=== PATIENT | female | born 1940 | race Caucasian/White ===

== ENCOUNTER 2018-07-02 09:50 | Inpatient (IN) ==
[2018-06-19 18:41] LABS: Appearance,Urine CLEAR; Bacteria,Urine 0 /hpf (0); Bilirubin,Urine NEG (NEG); Color,Urine STRAW; Glucose,Urine (UA) NEGATIVE (NEG); Leukocyte Esterase,Urine 25 /uL (NEG); Protein,Urine NEG (NEG); Specific Gravity,Urine 1.008 (1.000-1.035); Urine Blood NEG mg/dL (<0.03); Urine RBC 1 /hpf (0-1); Urine Squamous Epithelial Cell 1 /hpf (0-4); Urine Transitional Epi Cells < 1 /hpf (0-2); Urine WBC 2 /hpf (0-4); Urobilinogen,Urine NEG (NEG)
[2018-06-19 18:57] LABS: Basophils # (Auto) 0 K/mcL (0.0-0.3); Basophils % (Auto) 0.3 % (0.0-2.0); Eosinophils # (Auto) 0.1 K/mcL (0.0-0.7); Eosinophils % (Auto) 2.2 % (0.0-7.0); Lymphocytes # (Auto) 1.4 K/mcL (1.5-4.8); Lymphocytes % (Auto) 20.9 % (15.5-49.0); Mean Cell Volume 90.8 fL (80.0-100.0); Mean Corpuscular HGB Conc 33.3 g/dL (31.0-36.0); Monocytes # (Auto) 0.4 K/mcL (0.1-0.9); Monocytes % (Auto) 6.6 % (1.0-12.0); Platelet Count 188 K/mcL (140-440); RBC 3.77 M/mcL (4.00-5.20); Red Cell Distribution Width 14.1 % (11.5-14.5)
[2018-06-19 19:25] LABS: Blood Urea Nitrogen 15 mg/dl (8-23)
[~2018-07-02 09:50] MED LIST: 0.9 % SODIUM CHLORIDE 9 ML, KETOROLAC 30 MG, ROPIVACAINE HCL/PF 49.5 ML, EPINEPHrine 0.... IJ SCH; CELECOXIB 200 MG CAPSULE PO SCH; PREGABALIN 75 MG CAPSULE PO SCH; ceFAZolin 2 GM in DEXTROSE 5% IN WATER 50 ML IV SCH; oxyCODONE 10 MG TAB.ER.12H PO SCH
[2018-07-02] MEDS ORDERED: GENTAMICIN SULFATE 800 MG/20 ML VIAL IR ONE (14:52)
[2018-07-02] MEDS ORDERED: ROPIVACAINE HCL/PF 20 ML VIAL IJ ONE (15:10)
[2018-07-02] MEDS ORDERED: ONDANSETRON 4 MG/2 ML VIAL IV ONE (15:10)
[2018-07-02] MEDS ORDERED: TRANEXAMIC ACID 1,000 MG/10 ML VIAL IV ONE (15:10)
[2018-07-02] MEDS ORDERED: KETAMINE 10 MG/ML ML IV ONE (15:10)
[2018-07-02] MEDS ORDERED: MIDAZOLAM 2 MG/2 ML VIAL IV ONE (15:10)
[2018-07-02] MEDS ORDERED: PROPOFOL 200 MG/20 ML VIAL IV ONE (15:10)
[2018-07-02] MEDS ORDERED: DEXAMETHASONE 10 MG/ML VIAL IV ONE (15:10)
[2018-07-02] MEDS ORDERED: GLYCOPYRROLATE 0.2 MG/ML VIAL IV ONE (15:10)
[2018-07-02] MEDS ORDERED: LIDOCAINE HCL/PF 100 MG/5 ML SYRINGE IV ONE (15:10)
[2018-07-02] MEDS ORDERED: PHENYLEPHRINE 10 MG/ML VIAL IV ONE (15:10)
[2018-07-02] MEDS ORDERED: METHOCARBAMOL 1,000 MG/10 ML VIAL IV PRN (15:35)
[2018-07-02] MEDS ORDERED: fentaNYL 100 MCG/2 ML VIAL IV PRN (15:35)
[2018-07-02] MEDS ORDERED: LACTATED RINGERS 250 ML IV PRN (15:35)
[2018-07-02] MEDS ORDERED: BENZOCAINE/MENTHOL 1 LOZENGE PO PRN ×2 (15:35→16:46)
[2018-07-02] MEDS ORDERED: ONDANSETRON 4 MG/2 ML VIAL IV PRN ×2 (15:35→16:46)
[2018-07-02] MEDS ORDERED: FLUMAZENIL 0.1 MG/ML ML IV PRN (15:35)
[2018-07-02] MEDS ORDERED: IPRATROPIUM/ALBUTEROL 3 ML AMPUL.NEB NEB PRN (15:35)
[2018-07-02] MEDS ORDERED: MEPERIDINE 25 MG/ML SYRINGE IV PRN (15:35)
[2018-07-02] MEDS ORDERED: ACETAMINOPHEN 1,000 MG/100 ML BOTTLE IV ONE (15:35)
[2018-07-02] MEDS ORDERED: NALOXONE HCL 0.4 MG/ML VIAL IV PRN (15:35)
[2018-07-02] MEDS ORDERED: LACTATED RINGERS 1,000 ML IV SCH (15:45)
--- NOTE | 2018-07-02 16:45 | Brief Operative Note ---
Date of procedure: 07/02/18 Pre-op diagnosis: right knee oa Post-op diagnosis: same Procedure: right total knee arthroplasty Grafts/Implants: Yes Anesthesia: spinal Complications: none Surgeon: Ralph Duncan Project Superintendent: Elisha Raphael Estimated blood loss (cc): 150 Tourniquet Time (Minutes): 64 Specimens Removed/Pathology: none sent Condition: stable Disposition: PACU
[2018-07-02] MEDS ORDERED: ACETAMINOPHEN 325 MG TABLET PO PRN (16:46)
[2018-07-02] MEDS ORDERED: TRANEXAMIC ACID 1,000 MG/10 ML VIAL IV SCH (16:46)
[2018-07-02] MEDS ORDERED: MAGNESIUM HYDROXIDE 30 ML ORAL.SUSP PO PRN (16:46)
[2018-07-02] MEDS ORDERED: BISACODYL 10 MG SUPP.RECT PR PRN (16:46)
[2018-07-02] MEDS ORDERED: POLYETHYLENE GLYCOL 3350 17 GM PACKET PO PRN (16:46)
[2018-07-02] MEDS ORDERED: ONDANSETRON 4 MG ODT TABLET SL PRN (16:46)
[2018-07-02] MEDS ORDERED: FLEETS ADULT ENEMA PR PRN (16:46)
[2018-07-02] MEDS ORDERED: PROMETHAZINE 25 MG/ML VIAL IM PRN (16:46)
--- NOTE | 2018-07-02 16:59 | Operative Note ---
DATE OF OPERATION: 07/02/2018 PREOPERATIVE DIAGNOSIS: Degenerative joint disease, right knee. POSTOPERATIVE DIAGNOSIS: Degenerative joint disease, right knee. PROCEDURE PERFORMED: Right total knee arthroplasty. SURGEON: Mary Lou Duncan M.D. ELECTRONICS SCALE TESTER SURGEON: Elisha Raphael PA-C. ANESTHESIA: Spinal with LMA assist. ESTIMATED BLOOD LOSS: 150 mL. COMPLICATIONS: None noted. SPECIMENS REMOVED: None. DRAINS: None. TOURNIQUET TIME: 64 minutes at 300 mmHg. IMPLANTS: DePuy tibial insert fixed bearing posterior stabilized size 6, 6 mm AOX; DePuy Attune femoral posterior stabilized size 6 narrow right; DePuy Attune patella medialized dome 35 mm cemented AOX; DePuy tibial base revision knee system fixed bearing size 5 cemented; DePuy CMW2 bone cement 20 grams x4. INDICATIONS: The patient has had a long-standing history of worsening pain in the knee that has failed conservative treatment. Radiographs have confirmed advanced degenerative joint disease. After a long discussion about treatment options, the patient elected to proceed with a knee arthroplasty. The risks and benefits were discussed with the patient in detail including, but not limited to, the risks of anesthesia, problems with the heart or lungs related to anesthesia, infection, compromise or injury to the nerves and blood vessels, deep venous thrombosis, pulmonary embolism, pneumonia, continued pain after surgery, worsening pain or symptoms after surgery, swelling, loss of motion, instability, leg length discrepancy, and need for repeat surgery. DESCRIPTION OF PROCEDURE: The patient was seen in the pre-anesthesia waiting room where all questions were answered and the correct side and site were identified and marked. The patient was transferred to the operating room and administered the anesthetic and given pre-operative antibiotics. A time-out was then called. The extremity was prepped and draped, exsanguinated, and the tourniquet was inflated to 300 mmHg. A midline skin incision was then made with a standard medial parapatellar arthrotomy. Debridement of the menisci, ACL, and PCL was performed followed by balancing releases in the medial lateral plane. We then established intramedullary access to both the femur and tibia in a standard fashion. The femoral guide isauro was initially placed with the distal femoral guide, pinned into place, and the distal femoral cut was performed and checked with a flat plate. We then turned our attention to the tibia. The intramedullary guide was placed with the proximal tibial cutting block. The block was appropriately positioned off the affected side, varus and valgus was checked with the extra-medullary guide, and the block was pinned into place. The proximal tibial cut was performed and the tibia was prepared for the tibial implant with appropriate rotation. The tibia, femur, and posterior compartment were debrided of osteophytes, loose bodies, and meniscal fragments We then used the gap balancing technique to balance extension with the first two cuts and good balancing was obtained with a 10 millimeter gap block. We turned our attention back to the femur and used the referencing block and implant to size appropriately. Using the gap balancing technique for the flexion space we set our rotation of the femur off the tibial cut. Anesthesia gave the patient 1 gram of Tranexamic Acid via an intravenous route. We placed the 4 in 1 cutting block and made anterior, posterior, and chamfer cuts. Box plasty cuts were then made in a standard fashion for the posterior stabilized prosthesis. We then completed osteophyte release and posterior capsule release from the posterior compartment. Trials were placed and we chose the polyethylene insert thickness that provided the best stability in all planes. With the trials in place, we did a measured resection for a resurfacing patella. We sized the patella and placed the patella trial and performed a lateral facetectomy with the saw and rongeur. Good tracking was obtained. We removed all trials, irrigated and dried all cut surfaces. We cemented the components into place including tibia, femur and patella. We placed a trial liner and held the knee in full extension with the patella compressed while the cement cured. We then removed all excess cement and placed the final polyethylene tibiofemoral component. Irrigation with 3 liters of antibiotic saline was then performed using jet-lavage. We let the tourniquet down and coagulated bleeding vessels. We injected a 100 cubic centimeter volume including Ropivacaine 49.25 cubic centimeters at 5 milligrams per cubic centimeter, Ketorolac 30 milligrams, and Epinephrine 0.5 milligrams into 100 cubic centimeters volume of normal saline. We closed the retinaculum with #2 Stratafix and 0 Vicryl. We closed the subcutaneous tissue and skin in layers out to Dermabond on the skin. A sterile pressure dressing was applied. All needle and sponge counts were correct. The patient was transferred to the recovery room in stable condition. [email or web address] Job ID: [id number] Doc ID: [id number] Mary Lou Duncan MD
--- NOTE | 2018-07-02 17:48 | XRay Report ---
CLINICAL INFORMATION: Post-Op Total Knee COMPARISON: None FINDINGS: Total knee prostheses is anatomically aligned. No osseous abnormality. Soft tissue swelling seen as expected. IMPRESSION: Negative Interpreted and Authenticated by: Ralph Benitez 07/02/18
[2018-07-02] MEDS: 0.9 % SODIUM CHLORIDE 1,000 ML IV SCH (18:35)
[2018-07-02] MEDS: KETOROLAC 15 MG/ML VIAL IV SCH (18:35)
[2018-07-02] MEDS: HYDROcodone/APAP 10/325MG TABLET PO PRN ×2 (20:00→22:21)
[2018-07-02] MEDS: METHOCARBAMOL 750 MG TABLET PO PRN (21:39)
[2018-07-02] MEDS: DOCUSATE SODIUM 100 MG CAPSULE PO SCH (22:01)
[2018-07-02] MEDS: SENNOSIDES 1 TABLET PO SCH (22:01)
[2018-07-02] MEDS: ATORVASTATIN 20 MG TABLET PO SCH (22:01)
[2018-07-02] MEDS: ASPIRIN 325 MG ENTERIC COATED TABLET PO SCH (22:01)
[2018-07-02] MEDS: FAMOTIDINE 20 MG TABLET PO SCH (22:01)
[2018-07-02] MEDS: OXYBUTYNIN CHLORIDE 5 MG TAB.XL.24H PO SCH (22:02)
[2018-07-02] MEDS: 0.9 % SODIUM CHLORIDE 10 ML SYRINGE IV SCH (22:05)
[2018-07-02] MEDS: ceFAZolin 1 GM VIAL IV SCH (22:05)
[2018-07-03] MEDS: HYDROcodone/APAP 10/325MG TABLET PO PRN ×6 (00:27→22:15)
[2018-07-03] MEDS: KETOROLAC 15 MG/ML VIAL IV SCH ×4 (00:27→18:01)
[2018-07-03] MEDS: 0.9 % SODIUM CHLORIDE 1,000 ML IV SCH ×3 (02:42→18:36)
[2018-07-03] MEDS: METHOCARBAMOL 750 MG TABLET PO PRN (05:26)
[2018-07-03] MEDS: 0.9 % SODIUM CHLORIDE 10 ML SYRINGE IV SCH ×3 (06:03→22:16)
[2018-07-03] MEDS: ceFAZolin 1 GM VIAL IV SCH (07:13)
--- NOTE | 2018-07-03 07:18 | Orthopedic Progress Note ---
Subjective Patient information: Note initiated : 07/03/18 at 7:16 am Service Date, if different from initiated Date: [] Patient: Regina Brooks 78 y/o F admitted on 07/02/18 for Right Total Knee Arthroplasty. Chief Complaint: [POD #1 s/p right TKA Doing well, reports minimal pain. Denies CP, SOB, numbness, tingling, calf pain.] Objective Vital signs: Vital Signs Temp Pulse Resp BP BP Pulse Ox 07/03/18 04:16 97.8 F 73 20 130/65 92 07/02/18 23:07 97.5 F 69 20 148/76 97 07/02/18 20:52 62 12 155/72 96 07/02/18 19:52 58 L 154/71 97 07/02/18 19:22 65 147/73 95 07/02/18 18:52 60 135/74 95 07/02/18 18:37 59 L 132/69 95 07/02/18 18:22 57 L 125/66 95 07/02/18 18:07 60 134/62 93 07/02/18 17:52 97.3 F 65 16 118/61 88 L 07/02/18 17:45 97.5 F 65 15 105/63 95 07/02/18 17:30 97.2 F 65 14 109/52 95 07/02/18 17:15 75 16 100/54 93 07/02/18 17:10 75 14 97/46 95 07/02/18 17:05 70 11 L 105/53 95 07/02/18 17:00 98.7 F 74 16 92/46 98 07/02/18 09:50 97.9 F 59 L 16 131/71 93 Intake and Output 07/02/18 07/03/18 07/03/18 21:59 05:59 13:59 Intake Total 1620 1350 Output Total 350 150 Balance 1270 1350 -150 Intake: IV 100 1000 Sodium Chloride 0.9% 1,000 ml @ 1000 125 mls/hr IV .Q8H [facility] Rx#: [id number] Oral 120 350 IV - Manual Only 1400 Output: Void Amount 350 150 Other: Meal Dinner Percent of Meal Consumed 25% Feeding Ability Independent Urine Appearance Cloudy Urine Color Light Mehreen Urine Odor Strong Weight 211 lb 8 oz Intake & Output: Intake & Output 07/02/18 07/03/18 07/03/18 21:59 05:59 13:59 Intake Total 1620 1350 Output Total 350 150 Balance 1270 1350 -150 Weight 211 lb 8 oz Intake: IV 100 1000 Sodium Chloride 0.9% 1,000 ml @ 1000 125 mls/hr IV .Q8H [facility] Rx#: [id number] Oral 120 350 IV - Manual Only 1400 Output: Void Amount 350 150 Other: Meal Dinner Percent of Meal Consumed 25% Feeding Ability Independent Urine Appearance Cloudy Urine Color Light Mehreen Urine Odor Strong Incision: Yes healing, No draining, No red, No swollen, No inflamed, Yes clean and dry Incision clean and dry: Yes Dressing: Yes clean, Yes dry, Yes intact Weight bearing status: as tolerated Neurological exam IM: Yes alert, Yes oriented X3, Yes motor sensory intact, Yes neurovascular intact Extremities exam IM: No calf tenderness, Yes Foot pink and warm, Yes neurovascular intact - Periperhal Pulses Peripheral pulses: 2+: dorsalis pedis (L), dorsalis pedis (R), posterior tibialis (L), posterior tibialis (R) - Labs CBC & BMP: 07/03/18 04:10 06/19/18 14:43 Labs: Orthopedic Labs 07/02/18 10:11 PT 12.8 INR 1.0 07/03/18 06/19/18 04:10 14:43 Hgb 9.9 L 11.4 L Hct 30.6 L 34.2 L Assessment and Plan (1) Knee osteoarthritis POD #1 s/p right TKA: -d/c planning to SNF Sunday -pain control -ASA 325mg BID x 4 weeks -PT-WBAT -dermabond Status: Acute
[2018-07-03] MEDS: HYDROCHLOROTHIAZIDE 25 MG TABLET PO SCH (08:23)
[2018-07-03] MEDS: LISINOPRIL 20 MG TABLET PO SCH (08:24)
[2018-07-03] MEDS: RALOXIFENE HCL 60 MG TABLET PO SCH (08:24)
[2018-07-03] MEDS: DOCUSATE SODIUM 100 MG CAPSULE PO SCH ×2 (08:24→22:15)
[2018-07-03] MEDS: Anoro Ellipta 1 PUFF INH SCH (08:24)
[2018-07-03] MEDS: FAMOTIDINE 20 MG TABLET PO SCH ×2 (08:24→22:15)
[2018-07-03] MEDS: ASPIRIN 325 MG ENTERIC COATED TABLET PO SCH ×2 (08:24→22:15)
[2018-07-03] MEDS: OXYBUTYNIN CHLORIDE 5 MG TAB.XL.24H PO SCH (22:15)
[2018-07-03] MEDS: SENNOSIDES 1 TABLET PO SCH (22:15)
[2018-07-03] MEDS: ATORVASTATIN 20 MG TABLET PO SCH (22:15)
[2018-07-04] MEDS: KETOROLAC 15 MG/ML VIAL IV SCH ×3 (00:25→11:33)
[2018-07-04] MEDS: HYDROcodone/APAP 10/325MG TABLET PO PRN ×5 (02:25→22:58)
[2018-07-04] MEDS: 0.9 % SODIUM CHLORIDE 10 ML SYRINGE IV SCH ×3 (05:43→20:48)
--- NOTE | 2018-07-04 07:27 | Orthopedic Progress Note ---
Subjective Patient information: Note initiated : 07/04/18 at 7:25 am Service Date, if different from initiated Date: [] Patient: Regina Brooks 78 y/o F admitted on 07/02/18 for Right Total Knee Arthroplasty. Chief Complaint: [] Interval history: doing well. no complaints Objective Vital signs: Vital Signs Temp Pulse Resp BP Pulse Ox 07/04/18 04:00 97.6 F 59 L 18 91/54 92 07/04/18 03:00 77 07/03/18 15:54 97.7 F 58 L 16 103/60 93 07/03/18 12:33 97.5 F 60 20 113/53 92 07/03/18 08:32 97.5 F 64 20 112/61 91 07/03/18 08:23 120/50 Intake and Output 07/03/18 07/04/18 07/04/18 21:59 05:59 13:59 Intake Total 790 450 Output Total 450 200 175 Balance 340 250 -175 Intake: Oral 790 450 Output: Void Amount 450 200 175 Other: Meal Dinner Percent of Meal Consumed 90 Feeding Ability Independent Urine Appearance Clear Clear Urine Color Light Mehreen Pale Urine Odor Strong Normal Weight 232 lb Intake & Output: Intake & Output 07/03/18 07/04/18 07/04/18 21:59 05:59 13:59 Intake Total 790 450 Output Total 450 200 175 Balance 340 250 -175 Weight 232 lb Intake: Oral 790 450 Output: Void Amount 450 200 175 Other: Meal Dinner Percent of Meal Consumed 90 Feeding Ability Independent Urine Appearance Clear Clear Urine Color Light Mehreen Pale Urine Odor Strong Normal Incision: Yes healing Incision clean and dry: Yes Dressing: Yes clean, Yes dry, Yes intact Weight bearing status: full Neurological exam IM: Yes alert, Yes oriented X3, Yes motor sensory intact, Yes neurovascular intact Extremities exam IM: No calf tenderness, Yes Foot pink and warm, Yes neurovascular intact - Labs CBC & BMP: 07/04/18 04:15 06/19/18 14:43 Labs: Orthopedic Labs 07/02/18 10:11 PT 12.8 INR 1.0 07/04/18 07/03/18 06/19/18 04:15 04:10 14:43 Hgb 8.7 L 9.9 L 11.4 L Hct 26.7 L 30.6 L 34.2 L Assessment and Plan (1) Knee osteoarthritis pod 2 s/p tka pain control dvt prophylaxis PT d/c planning - SNF tomorrow Status: Acute
--- NOTE | 2018-07-04 07:30 | Discharge Summary ---
Ortho Discharge - TKA - Patient Instructions Diet: Regular Diet Activity: ambulate with assistive device, weight bearing as tolerated Total Knee Protocol: For Total Knee: Start ROM CONSUELO with stationary bike or rocking chair. Work on gaining full extension of knee. Posterior dislocation precautions provided. Hip abductor strengthening and gait training instructions provided. Apply Cryocuff as instructed. Dressing Care: May shower in 2 days - Problem Maintenance (1) Knee osteoarthritis Status: Acute - Follow Up Plan Follow Up Appointments: Elisha Raphael PA-C [Physician Studio Technician Video Operator] - 07/17/18 8:40 am Disposition: Home, Self-Care Prognosis: Good Rehab Potential: Good I certify that the patient requires SNF services: Yes Overall status at discharge: patient is progressing back to baseline - Orders For Discharge Prescriptions: Aspirin [Ecotrin] 325 mg PO BID #60 tab.ec HYDROcodone/APAP 10/325MG [Chili 10-325Mg] 1 - 2 tab PO Q4H PRN #60 tab PRN Reason: Pain Additional Discharge Orders: OT Discharge Order Location: None Selected Physical Therapy at Discharge - TKA Location: None Selected Toilet Riser Discharge Order Location: None Selected Walker Location: None Selected
[2018-07-04] MEDS: DOCUSATE SODIUM 100 MG CAPSULE PO SCH ×2 (08:47→20:46)
[2018-07-04] MEDS: HYDROCHLOROTHIAZIDE 25 MG TABLET PO SCH (08:47)
[2018-07-04] MEDS: RALOXIFENE HCL 60 MG TABLET PO SCH (08:47)
[2018-07-04] MEDS: Anoro Ellipta 1 PUFF INH SCH (08:47)
[2018-07-04] MEDS: FAMOTIDINE 20 MG TABLET PO SCH ×2 (08:47→20:47)
[2018-07-04] MEDS: ASPIRIN 325 MG ENTERIC COATED TABLET PO SCH ×2 (08:47→20:47)
[2018-07-04] MEDS: LISINOPRIL 20 MG TABLET PO SCH (08:48)
[2018-07-04] MEDS: ATORVASTATIN 20 MG TABLET PO SCH (20:46)
[2018-07-04] MEDS: OXYBUTYNIN CHLORIDE 5 MG TAB.XL.24H PO SCH (20:46)
[2018-07-04] MEDS: SENNOSIDES 1 TABLET PO SCH (20:46)
[2018-07-05] MEDS: HYDROcodone/APAP 10/325MG TABLET PO PRN ×4 (01:54→09:18)
[2018-07-05] MEDS: METHOCARBAMOL 750 MG TABLET PO PRN ×2 (01:55→08:09)
[2018-07-05] MEDS: 0.9 % SODIUM CHLORIDE 10 ML SYRINGE IV SCH (05:55)
--- NOTE | 2018-07-05 07:03 | Orthopedic Progress Note ---
Subjective Patient information: Note initiated : 07/05/18 at 7:03 am Service Date, if different from initiated Date: [] Patient: Regina Brooks 78 y/o F admitted on 07/02/18 for Right Total Knee Arthroplasty. Chief Complaint: [] Interval history: doing well. no complaints Objective Vital signs: Vital Signs Temp Pulse Resp BP BP BP Pulse Ox 07/05/18 06:51 97.8 F 20 140/69 95 07/05/18 03:06 97.1 F 71 18 130/59 91 07/04/18 22:58 97.9 F 73 16 134/66 94 07/04/18 19:25 98.1 F 64 14 136/63 93 07/04/18 16:00 97.8 F 58 L 20 110/56 92 07/04/18 12:00 97.7 F 60 18 117/57 91 07/04/18 07:49 97.7 F 62 18 113/56 91 Intake and Output 07/04/18 07/05/18 07/05/18 21:59 05:59 13:59 Intake Total 240 1470 Output Total 700 1550 Balance -460 -80 Intake: Oral 240 1470 Output: Void Amount 700 1550 Other: Meal Dinner Percent of Meal Consumed 100% Feeding Ability Independent Urine Appearance Clear Clear Urine Color Light Mehreen Bright Yellow Urine Odor Normal Weight 233 lb Intake & Output: Intake & Output 07/04/18 07/05/18 07/05/18 21:59 05:59 13:59 Intake Total 240 1470 Output Total 700 1550 Balance -460 -80 Weight 233 lb Intake: Oral 240 1470 Output: Void Amount 700 1550 Other: Meal Dinner Percent of Meal Consumed 100% Feeding Ability Independent Urine Appearance Clear Clear Urine Color Light Mehreen Bright Yellow Urine Odor Normal Incision: Yes healing Incision clean and dry: Yes Dressing: Yes clean, Yes dry, Yes intact Weight bearing status: full Neurological exam IM: Yes abnormal gait, Yes alert, Yes oriented X3, Yes motor sensory intact, Yes neurovascular intact Extremities exam IM: No calf tenderness, Yes Foot pink and warm, Yes neurovascular intact - Labs CBC & BMP: 07/05/18 04:40 06/19/18 14:43 Labs: Orthopedic Labs 07/02/18 10:11 PT 12.8 INR 1.0 07/05/18 07/04/18 07/03/18 04:40 04:15 04:10 Hgb 9.1 L 8.7 L 9.9 L Hct 26.7 L 26.7 L 30.6 L 06/19/18 14:43 Hgb 11.4 L Hct 34.2 L Assessment and Plan (1) Knee osteoarthritis pod 3 s/p tka pain control dvt prophylaxis PT d/c planning - SNF today Status: Acute
[2018-07-05] MEDS: LISINOPRIL 20 MG TABLET PO SCH (08:08)
[2018-07-05] MEDS: HYDROCHLOROTHIAZIDE 25 MG TABLET PO SCH (08:09)
[2018-07-05] MEDS: RALOXIFENE HCL 60 MG TABLET PO SCH (08:09)
[2018-07-05] MEDS: DOCUSATE SODIUM 100 MG CAPSULE PO SCH (08:09)
[2018-07-05] MEDS: ASPIRIN 325 MG ENTERIC COATED TABLET PO SCH (08:10)
[2018-07-05] MEDS: Anoro Ellipta 1 PUFF INH SCH (08:11)
[2018-07-05] MEDS: FAMOTIDINE 20 MG TABLET PO SCH (08:11)
== END 2018-07-05 09:56 | disposition home or self-care (01) | DRG 470 ==
LOC: MEDSUR 09:50
PROVIDERS: ADMIT Orthopaedic Surgery Sports Medicine; ATTEND Orthopaedic Surgery Sports Medicine

== ENCOUNTER 2019-02-06 11:52 | Inpatient (IN) ==
[2019-02-06 12:46] LABS: Basophils # (Auto) 0 K/mcL (0.0-0.3); Basophils % (Auto) 0.6 % (0.0-2.0); Eosinophils # (Auto) 0 K/mcL (0.0-0.7); Eosinophils % (Auto) 0.7 % (0.0-7.0); Hematocrit 32.2 % (36.0-48.0); Hemoglobin 10.9 g/dL (12.0-15.0); Lymphocytes # (Auto) 1.1 K/mcL (1.5-4.8); Lymphocytes % (Auto) 19.9 % (15.5-49.0); Mean Cell Volume 85.9 fL (80.0-100.0); Mean Corpuscular HGB Conc 33.8 g/dL (31.0-36.0); Mean Platelet Volume 9.1 fL (7.4-10.4); Monocytes # (Auto) 0.5 K/mcL (0.1-0.9); Monocytes % (Auto) 9.8 % (1.0-12.0); Platelet Count 136 K/mcL (140-440); RBC 3.75 M/mcL (4.00-5.20); Red Cell Distribution Width 13.8 % (11.5-14.5); WBC 5.5 K/mcL (4.5-11.0)
[2019-02-06] MEDS ORDERED: LACTATED RINGERS 1,000 ML IV ONE (12:46)
[2019-02-06 13:04] LABS: ALT/SGPT 17 U/l (0-40); AST/SGOT 26 U/l (0-37); Albumin/Globulin Ratio 1.5 (1.0-2.3); Alkaline Phosphatase 87 U/L (39-117); Bilirubin,Total 0.4 mg/dL (0.0-1.0); Blood Urea Nitrogen 46 mg/dl (8-23); Carbon Dioxide 20 mmol/L (22-30); Globulin 2.6 gm/dL (2.2-3.7); Glomerular Filtration Rate 17; Glucose 110 mg/dL (70-105)
[2019-02-06 13:12] LABS: Chloride 94 mmol/L (96-108)
--- NOTE | 2019-02-06 14:15 | Emergency Department Note ---
General Adult HPI - General Chief complaint: Blood Pressure Problem Stated complaint: Weakness, low BP Time Seen by Provider: 02/06/19 12:01 - History of Present Illness HPI Narrative: 78-year-old female presents with hypotension and lightheadedness. She also gets short of breath if she walks or exerts herself. Her primary care provider sent her over for further evaluation after hypotension. Family is with her. They states she has a couple of things going on. She has lost her voice over the last few months and has seen an ENT, Dr. 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 She has been on Bactrim for the last 9 days. States she also is getting up a lot at night and going to the bathroom and her primary care provider was telling her not to eat or drink after taking her last doses of medications in the evening and family reports that she got confused and misunderstood and thought that meant she was not supposed to drink anything at all. Patient reports that she is not been eating much at all and has not been drinking because she thought she was not supposed to. She denies any pain anywhere. No cough or cold symptoms. No fever or chills. No nausea, vomiting, or diarrhea. Family reports she is not good about drinking fluids anyway. Patient states the only thing she drinks his coffee. - Related Data Home Medications Medication Instructions Recorded Confirmed Anoro Ellipta 1 puff INH DAILY 06/19/18 02/06/19 Aspirin [Aspirin EC] 325 mg PO DAILY 06/19/18 02/06/19 Atorvastatin [Lipitor] 40 mg PO HS 06/19/18 02/06/19 Benazepril HCl 40 mg PO DAILY 06/19/18 02/06/19 Ergocalciferol (Vitamin D2) 50,000 unit PO SUTH@0900 06/19/18 02/06/19 [Vitamin D2] Hydrochlorothiazide [Oretic] 25 mg PO DAILY 06/19/18 02/06/19 Lactobacillus Acidophilus 2 cap PO DAILY 06/19/18 02/06/19 [Probiotic] Multivit-Min/FA/Lycopen/Lutein 1 tab PO DAILY 06/19/18 02/06/19 [Centrum Silver Tablet] Oxybutynin Chloride [Oxybutynin 10 mg PO HS 06/19/18 02/06/19 Chloride ER] Raloxifene HCl [Evista] 60 mg PO DAILY 06/19/18 02/06/19 Pantoprazole [Protonix] 40 mg PO QAMAC 02/06/19 02/06/19 Previous Rx's Medication Instructions Recorded Aspirin [Ecotrin] 325 mg PO BID #60 tab.ec 07/04/18 HYDROcodone/APAP 10/325MG [Zap 1 - 2 tab PO Q4H PRN #60 tab 07/04/18 10-325Mg] Allergies Allergy/AdvReac Type Severity Reaction Status Date / Time No Known Drug Allergies Allergy Verified 02/06/19 11:30 Review of Systems All systems ED: reviewed and negative except as stated. Past Medical History - Social History smoking status: Former smoker Alcohol use: Reports: None Drug use: Reports: none Physical Exam General appearance: alert Head: atraumatic, normocephalic, normal inspection Eye: Present: normal appearance. Absent: conjunctival injection ENT: Present: normal oropharynx, TM's normal bilaterally, normal external ear exam. Absent: mucous membranes moist (slightly dry) Chest: Present: symmetric chest wall rise Respiratory: Present: normal lung sounds bilaterally. Absent: respiratory distress, rales/crackles, accessory muscle use Cardiovascular: Present: regular rate, normal heart sounds Extremities: Present: normal inspection Neurological: Present: alert, oriented X3 Psychiatric: Present: normal affect, normal mood Skin: Present: warm, dry, intact, normal color Course Course Narrative: At 1400 I did speak with the hospitalist, Dr. Goodman who agrees to accept this patient Vital Signs Temperature 97.3 F 02/06/19 11:53 Pulse Rate 69 02/06/19 11:53 Respiratory Rate 14 02/06/19 11:53 Blood Pressure 91/60 02/06/19 11:53 Pulse Oximetry (%) 96 02/06/19 11:53 Temperature 97.3 F 02/06/19 11:53 Pulse Rate 89 02/06/19 13:15 Respiratory Rate 18 02/06/19 12:20 Blood Pressure 97/58 02/06/19 13:18 Pulse Oximetry (%) 93 02/06/19 12:31 Medical Decision Making - Lab Data Lab results reviewed: Yes I reviewed the patient's lab results. Result diagrams: 02/06/19 12:14 02/06/19 12:14 Lab Results 02/06/19 02/06/19 02/06/19 Range/Units 12:14 12:14 12:14 WBC 5.5 (4.5-11.0) K/mcL RBC 3.75 L (4.00-5.20) M/mcL Hgb 10.9 L (12.0-15.0) g/dL Hct 32.2 L (36.0-48.0) % MCV 85.9 (80.0-100.0) fL MCH 29.1 (26.0-34.0) pg MCHC 33.8 (31.0-36.0) g/dL RDW 13.8 (11.5-14.5) % Plt Count 136 L (140-440) K/mcL MPV 9.1 (7.4-10.4) fL Gran % 69.0 (38.0-78.0) % Lymph % (Auto) 19.9 (15.5-49.0) % [place] % (Auto) 9.8 (1.0-12.0) % Eos % (Auto) 0.7 (0.0-7.0) % Baso % (Auto) 0.6 (0.0-2.0) % Gran # 3.9 (1.8-8.0) K/mcL Lymph # (Auto) 1.1 L (1.5-4.8) K/mcL [place] # (Auto) 0.5 (0.1-0.9) K/mcL Eos # (Auto) 0 (0.0-0.7) K/mcL Baso # (Auto) 0 (0.0-0.3) K/mcL Sodium 129 L (133-145) mmol/L Potassium 4.0 (3.3-5.1) mmol/L Chloride 94 L (96-108) mmol/L Carbon Dioxide 20 L (22-30) mmol/L Anion Gap 15.0 (8-16) BUN 46 H (8-23) mg/dl Creatinine 2.6 H (0.6-1.1) mg/dl GFR Calculation 17 Glucose 110 H (70-105) mg/dL Calcium 9.0 (8.6-10.4) mg/dl Total Bilirubin 0.4 (0.0-1.0) mg/dL AST 26 (0-37) U/l ALT 17 (0-40) U/l Alkaline Phosphatase 87 (39-117) U/L Troponin T < 0.01 (0-0.03) ng/ml Total Protein 6.6 (5.9-8.4) gm/dL Albumin 4.0 (3.2-5.2) gm/dL Globulin 2.6 (2.2-3.7) gm/dL Albumin/Globulin Ratio 1.5 (1.0-2.3) Disposition Pt seen by VETERINARY PRACTICE MANAGER/PA only: Yes Clinical Impression: Dehydration, Elevated BUN, Elevated serum creatinine Disposition: Xfer As Outpt/Obs ([facility]) Condition: Fair Referrals: Nannette Vaca MD [Primary Care Provider] -
--- NOTE | 2019-02-06 14:55 | Internal Med History&Physical ---
Medical - H&P: HPI Patient information: Note initiated : 02/06/19 at 2:51 pm Service Date, if different from initiated Date: [] Patient: Regina Brooks a 78 y/o F admitted on for Weakness, low BP. Chief Complaint: [] History of present illness: Ms. Brooks is a 78 year old F Presents the ED for generalized weakness lightheadedness dyspnea on exertion. After daughter called Dr. Landrum or ENT specialist and instructed daughter to bring her into the ED. She states about the past 3 to 4 days she has been little lightheaded and dizzy when she gets up and has some shortness of breath with exertion. No cough or f philipp. She is been on Bactrim for about 9 days prescribed by ENT. He has been hoarse for several months and has been seeing ENT and was most recently prescribed the Bactrim. Patient also gets up at night multiple times to urinate and was told to not drink anything after nighttime medications however per family sounds like she is decreased her oral intake during the day as well. And per family she she does not drink very much fluids anyway. And not eating a whole lot either. No nausea vomiting abdominal pain or diarrhea. In the ED she was found to have acute kidney injury with hyponatremia. Her troponin was negative. She was started on IV fluids and hospitalist was contacted. Review of Systems: Pertinent positives as above. Denies headache/fever/chills/nausea/vomiting/chest or abdominal pain/cough/dyspnea/diarrhea. Remaining 10 point review of system reviewed negative Medical - H&P: PMH Medical history: Past medical history: TIA Anemia chronic Hypertension Hyperlipidemia GERD Past surgical history: Right TKA and left knee surgery Hysterectomy Bilateral carpal tunnel release Family: States mother and father both had heart disease Social history: Patient quit smoking 18 years ago Denies alcohol use Occasionally uses walker Lives by herself Medical - H&P: Meds Home Medications Medication Instructions Recorded Confirmed Type Anoro Ellipta 1 puff INH DAILY 06/19/18 02/06/19 History Aspirin [Aspirin EC] 325 mg PO DAILY 06/19/18 02/06/19 History Atorvastatin [Lipitor] 40 mg PO HS 06/19/18 02/06/19 History Benazepril HCl 40 mg PO DAILY 06/19/18 02/06/19 History Ergocalciferol (Vitamin D2) 50,000 unit PO SUTH@0900 04/03/19 11/21/19 History [Vitamin D2] Hydrochlorothiazide [Oretic] 25 mg PO DAILY 06/19/18 02/06/19 History Lactobacillus Acidophilus 2 cap PO DAILY 06/19/18 02/06/19 History [Probiotic] Multivit-Min/FA/Lycopen/Lutein 1 tab PO DAILY 06/19/18 02/06/19 History [Centrum Silver Tablet] Oxybutynin Chloride [Oxybutynin 10 mg PO HS 06/19/18 02/06/19 History Chloride ER] Raloxifene HCl [Evista] 60 mg PO DAILY 06/19/18 02/06/19 History Aspirin [Ecotrin] 325 mg PO BID #60 tab.ec 07/04/18 02/06/19 Rx HYDROcodone/APAP 10/325MG [[place] 1 - 2 tab PO Q4H PRN #60 tab 07/04/18 02/06/19 Rx 10-325Mg] Pantoprazole [Protonix] 40 mg PO QAMAC 02/06/19 02/06/19 History Allergies Allergy/AdvReac Type Severity Reaction Status Date / Time No Known Drug Allergies Allergy Verified 02/06/19 11:30 Medical - H&P: Exam - Constitutional Vitals: Temp Pulse Resp BP Pulse Ox 97.3 F 89 18 97/58 93 02/06/19 11:53 02/06/19 13:15 02/06/19 12:20 02/06/19 13:18 02/06/19 12:31 Exam: General: Alert, Awake, No acute Distress, obese Eyes/N/T: EOMI, PEERL, DMM Head/Neck: neck supple, normocephalic atraumatic CV: RRR, No murmurs, normal s1/s2 Pulm: Clear b/l, no wheezing/rhonchi/rales Abd: soft, nontender, +BS x4 Ext: no clubbing/cyanosis/edema Neuro: Alert, no focal deficits, moves all extremities, CN 2-12 grossly intact, symmetrical strength b/l upper/lower, sensations intact b/l upper/lower Skin: warm/dry Medical - H&P: Reslt - Labs CBC & Chem 7: 02/06/19 12:14 02/06/19 12:14 Labs: Short CBC 02/06/19 Range/Units 12:14 WBC 5.5 (4.5-11.0) K/mcL Hgb 10.9 L (12.0-15.0) g/dL Hct 32.2 L (36.0-48.0) % Plt Count 136 L (140-440) K/mcL BMP 02/06/19 12:14 Sodium 129 L Potassium 4.0 Chloride 94 L Carbon Dioxide 20 L BUN 46 H Creatinine 2.6 H Glucose 110 H Calcium 9.0 Cardiac Enzymes 02/06/19 Range/Units 12:14 Troponin T < 0.01 (0-0.03) ng/ml Liver Function 02/06/19 Range/Units 12:14 Total Bilirubin 0.4 (0.0-1.0) mg/dL AST 26 (0-37) U/l ALT 17 (0-40) U/l Alkaline Phosphatase 87 (39-117) U/L Albumin 4.0 (3.2-5.2) gm/dL Medical - H&P: A/P - Narrative A/P Narrative: A: *SUSU: 2/2 poor Oral intake + BP meds + ?Bactrim *Hyponatremia: 2/2 volume depletion/meds *Hypotension: responded to IVF *HTN: hypotensive on admit *h/o TIA: on ASA/Statin *Anemia, chronic *GERD: *Obesity: *Generalized weakness: * P: -IVF -f/u chemistry -monitor UOP -hold home ACEI/HCTZ -cont home ASA/Statin -clarify home meds and update -pt/ot -ppx: lovenox/home ppi DNR
[2019-02-06] MEDS ORDERED: BISACODYL 10 MG SUPP.RECT PR PRN (16:11)
[2019-02-06] MEDS ORDERED: ONDANSETRON 4 MG/2 ML VIAL IV PRN (16:11)
[2019-02-06] MEDS: 0.9 % SODIUM CHLORIDE 1,000 ML IV SCH (17:18)
[2019-02-06] MEDS: ATORVASTATIN 40 MG TABLET PO SCH (21:27)
[2019-02-06] MEDS: 0.9 % SODIUM CHLORIDE 10 ML SYRINGE IV SCH (21:27)
[2019-02-06] MEDS: OXYBUTYNIN CHLORIDE 5 MG TAB.XL.24H PO SCH (21:27)
[2019-02-06] MEDS: DOCUSATE SODIUM 100 MG CAPSULE PO SCH (21:27)
[2019-02-06] MEDS: ACETAMINOPHEN 325 MG TABLET PO PRN (22:44)
[2019-02-07] MEDS: 0.9 % SODIUM CHLORIDE 1,000 ML IV SCH (03:46)
[2019-02-07] MEDS: 0.9 % SODIUM CHLORIDE 10 ML SYRINGE IV SCH ×3 (06:35→21:10)
[2019-02-07 06:44] LABS: ALT/SGPT 15 U/l (0-40); AST/SGOT 22 U/l (0-37); Albumin 3.5 gm/dL (3.2-5.2); Albumin/Globulin Ratio 1.5 (1.0-2.3); Alkaline Phosphatase 78 U/L (39-117); Bilirubin,Direct < 0.2 mg/dL (0.0-0.3); Bilirubin,Total 0.4 mg/dL (0.0-1.0); Blood Urea Nitrogen 35 mg/dl (8-23); Calcium 8.8 mg/dl (8.6-10.4); Carbon Dioxide 21 mmol/L (22-30); Chloride 98 mmol/L (96-108); Globulin 2.4 gm/dL (2.2-3.7); Glomerular Filtration Rate 33; Glucose 110 mg/dL (70-105); Lactate Dehydrogenase 203 U/L (94-250); Phosphorous 2.8 mg/dL (2.7-4.5); Triglycerides 148 mg/dl (<150); Uric Acid 9.7 mg/dL (2.5-8.0)
[2019-02-07] MEDS: PANTOPRAZOLE 40 MG TABLET PO SCH (07:15)
--- NOTE | 2019-02-07 07:44 | Internal Med Progress Note ---
Medical - PN: Subj Patient information: Note initiated : 02/07/19 at 7:41 am Service Date, if different from initiated Date: [] Patient: Regina Brooks a 78 y/o F admitted on 02/06/19 for Weakness, low BP. Chief Complaint: [] Interval history: Ms. Brooks is a 78 year old F Presents the ED for generalized weakness lightheadedness dyspnea on exertion. After daughter called Dr. Landrum or ENT specialist and instructed daughter to bring her into the ED. She states about the past 3 to 4 days she has been little lightheaded and dizzy when she gets up and has some shortness of breath with exertion. No cough or fe vers. She is been on Bactrim for about 9 days prescribed by ENT. He has been hoarse for several months and has been seeing ENT and was most recently prescribed the Bactrim. Patient also gets up at night multiple times to urinate and was told to not drink anything after nighttime medications however per family sounds like she is decreased her oral intake during the day as well. And per family she she does not drink very much fluids anyway. And not eating a whole lot either. No nausea vomiting abdominal pain or diarrhea. In the ED she was found to have acute kidney injury with hyponatremia. Her troponin was negative. She was started on IV fluids and hospitalist was contacted. 02/07 Doing better. Renal function improving. No overnight events or new complaints. Blood pressure good. Chemistry improved. Continue IV fluids today and follow-up renal function. Review of Systems: denies headache/fever/chills/nausea/vomiting/chest or abdominal pain/cough/dyspnea/diarrhea. Otherwise see above. - Constitutional Vitals: Vital Signs Temp Pulse Resp BP Pulse Ox 97.9 F 69 20 126/62 97 02/07/19 07:08 02/07/19 03:34 02/07/19 07:08 02/07/19 07:08 02/07/19 07:08 Period Temp Pulse Resp BP Sys/Martinez Pulse Ox Last 24 Hr 97.3 F-98.5 F 63-122 14-20 89-128/46-84 93-97 Intake and Output 02/06/19 02/07/19 02/07/19 21:59 05:59 13:59 Intake Total 1000 1180 Output Total 750 Balance 1000 430 Weight 91.852 kg Intake & Output: Intake & Output 02/06/19 02/07/19 02/07/19 21:59 05:59 13:59 Intake Total 1000 1180 Output Total 750 Balance 1000 430 Weight 91.852 kg Intake: IV 1000 1000 Sodium Chloride 0.9% 1,000 ml @ 1000 100 mls/hr IV .Q10H [facility] Rx#: [id number] Lactated Ringers 1,000 ml @ 1000 Wide Open IV BOLUS ONE Rx#: [id number] Oral 180 Output: Void Amount 750 Other: # Voids 1 Exam: General: Alert, Awake, No acute Distress, obese Eyes/N/T: EOMI, Head/Neck: neck supple, CV: RRR, No murmurs, Pulm: Clear b/l, no wheezing/rhonchi/rales Abd: soft, nontender, +BS x4 Ext: no clubbing/cyanosis/edema Neuro: Alert, no focal deficits, moves all extremities, Skin: warm/dry Medical - PN: Obj Da - Labs CBC & Chem 7: 02/06/19 12:14 02/07/19 04:42 Labs: Abnormal Lab Results 02/07/19 02/06/19 02/06/19 04:42 12:14 12:14 RBC 3.75 L Hgb 10.9 L Hct 32.2 L Plt Count 136 L Lymph # (Auto) 1.1 L Sodium 131 L 129 L Chloride 94 L Carbon Dioxide 21 L 20 L BUN 35 H 46 H Creatinine 1.5 H 2.6 H Glucose 110 H 110 H Uric Acid 9.7 H Meds: Medications Acetaminophen (Tylenol) 650 mg PO Q6HP PRN; Protocol PRN Reason: Per Pain Protocol/Fever > 101 Last Admin: 02/06/19 22:44 Dose: 650 mg Documented by: Aspirin (Ecotrin) 325 mg PO DAILY [facility] Atorvastatin Calcium (Lipitor) 40 mg PO HS [facility] Last Admin: 02/06/19 21:27 Dose: 40 mg Documented by: Bisacodyl (Dulcolax) 10 mg [place] Q2-3DAYS PRN PRN Reason: Constipation Docusate Sodium (Colace) 100 mg PO BID [facility] Last Admin: 02/06/19 21:27 Dose: 100 mg Documented by: Enoxaparin Sodium (Lovenox) 30 mg SQ DAILY [facility] Sodium Chloride (Sodium Chloride 0.9%) 1,000 mls @ 100 mls/hr IV .Q10H [facility] Stop: 02/07/19 12:10 Last Admin: 02/07/19 03:46 Dose: 100 mls/hr Documented by: Lactobacillus Rhamnosus (Culturelle) 2 cap PO DAILY [facility] Ondansetron HCl (Zofran) 4 mg IV Q6HP PRN PRN Reason: Nausea And Vomiting Oxybutynin Chloride (Ditropan Xl) 10 mg PO HS [facility] Last Admin: 02/06/19 21:27 Dose: 10 mg Documented by: Pantoprazole Sodium (Protonix) 40 mg PO QAMAC [facility] Last Admin: 02/07/19 07:15 Dose: 40 mg Documented by: Anoro Ellipta 1 Puff (Inhaler) 1 dose INH DAILY [facility] Raloxifene HCl (Evista) 60 mg PO DAILY [facility] Sodium Chloride (Saline Flush) 10 ml IV Q8 [facility] Last Admin: 02/07/19 06:35 Dose: Not Given Documented by: Medical - PN: A/P - Time Spent With Patient Total time spent is greater than 50% in coordination of care (as documented) at patient's floor/unit and/or counseling patient: - Narrative A/P Narrative: A: *SUSU on likely CKD II: 2/2 poor Oral intake + BP meds + ?Bactrim -improving *Hyponatremia: 2/2 volume depletion/meds -improving *Hypotension: responded to IVF *HTN: hypotensive on admit *h/o TIA: on ASA/Statin *Anemia, chronic *GERD: *Obesity: *Generalized weakness: * P: -IVF's -monitor UOP -hold home ACEI/HCTZ -cont home ASA/Statin -clarify home meds and update -pt/ot -ppx: lovenox/home ppi DNR
[2019-02-07] MEDS: DOCUSATE SODIUM 100 MG CAPSULE PO SCH ×2 (09:02→21:09)
[2019-02-07] MEDS: RALOXIFENE HCL 60 MG TABLET PO SCH (09:02)
[2019-02-07] MEDS: ASPIRIN 325 MG ENTERIC COATED TABLET PO SCH (09:03)
[2019-02-07] MEDS: ENOXAPARIN 30 MG/0.3 ML SYRINGE SQ SCH (09:03)
[2019-02-07] MEDS: LACTOBACILLUS 1 CAPSULE PO SCH (09:03)
[2019-02-07] MEDS: ANORO ELLIPTA INH SCH (09:03)
--- NOTE | 2019-02-07 11:28 | Discharge Summary ---
Medical - DS: Prov Patient information: Note initiated : 02/07/19 at 11:26 am Service Date, if different from initiated Date: [] Patient: Regina Brooks 78 y/o F admitted on 02/06/19 for Weakness, low BP. Chief Complaint: [] Date of admission: 02/06/19 16:07 Discharge date: 02/08/19 Primary care physician: Nannette Vaca Consults: 02/06/19 Consult to Physician [CONS] Stat Comment: Consulting Provider: Yash Goodman Reason For Exam: Physician to Consult Medical - DS: Meds - Discharge Medications Prescriptions: Benazepril [Lotensin] 10 mg PO DAILY #30 tab Transmission Status: Pending to [facility] #[id number] Active and Home Medications: Home Medications Anoro Ellipta 1 puff INH DAILY 06/19/18 [History Confirmed 02/07/19 Last Taken 02/06/19 08:00 1 puff] Aspirin [Aspirin EC] 325 mg PO DAILY 06/19/18 [History Confirmed 02/07/19 Last Taken 02/06/19 08:00 325 mg.] Atorvastatin [Lipitor] 40 mg PO HS 06/19/18 [History Confirmed 02/07/19 Last Taken 02/05/19 20:00 40 mg.] Benazepril HCl 40 mg PO DAILY 06/19/18 [History Confirmed 02/07/19 Last Taken 02/06/19 09:00 40 mg.] Ergocalciferol (Vitamin D2) [Vitamin D2] 50,000 unit PO SUTH@0900 06/19/18 [History Confirmed 02/07/19 Last Taken 02/06/19 09:00 70222 units] Hydrochlorothiazide [Oretic] 25 mg PO DAILY 06/19/18 [History Confirmed 02/07/19 Last Taken 02/06/19 08:00 25 mg.] Lactobacillus Acidophilus [Probiotic] 2 cap PO DAILY 06/19/18 [History Confirmed 02/06/19 Last Taken 07/01/18] Multivit-Min/FA/Lycopen/Lutein [Centrum Silver Tablet] 1 tab PO DAILY 06/19/18 [History Confirmed 02/07/19 Last Taken 02/06/19 09:00 1 tab] Oxybutynin Chloride [Oxybutynin Chloride ER] 10 mg PO HS 06/19/18 [History Confirmed 02/07/19 Last Taken 02/05/19 20:00 10 mg.] Raloxifene HCl [Evista] 60 mg PO DAILY 06/19/18 [History Confirmed 02/07/19 Last Taken 02/06/19 09:00 60 mg.] Pantoprazole [Protonix] 40 mg PO QAMAC 02/06/19 [History Confirmed 02/07/19 Last Taken 02/07/19 07:30 40 mg.] Home Medications Anoro Ellipta 1 puff INH DAILY 06/19/18 [History Confirmed 02/07/19 Last Taken 02/06/19 08:00 1 puff] Aspirin [Aspirin EC] 325 mg PO DAILY 06/19/18 [History Confirmed 02/07/19 Last Taken 02/06/19 08:00 325 mg.] Atorvastatin [Lipitor] 40 mg PO HS 06/19/18 [History Confirmed 02/07/19 Last Taken 02/05/19 20:00 40 mg.] Ergocalciferol (Vitamin D2) [Vitamin D2] 50,000 unit PO SUTH@0900 06/19/18 [History Confirmed 02/07/19 Last Taken 02/06/19 09:00 41476 units] Lactobacillus Acidophilus [Probiotic] 2 cap PO DAILY 06/19/18 [History Confirmed 02/06/19 Last Taken 07/01/18] Multivit-Min/FA/Lycopen/Lutein [Centrum Silver Tablet] 1 tab PO DAILY 06/19/18 [History Confirmed 02/07/19 Last Taken 02/06/19 09:00 1 tab] Oxybutynin Chloride [Oxybutynin Chloride ER] 10 mg PO HS 06/19/18 [History Confirmed 02/07/19 Last Taken 02/05/19 20:00 10 mg.] Raloxifene HCl [Evista] 60 mg PO DAILY 06/19/18 [History Confirmed 02/07/19 Last Taken 02/06/19 09:00 60 mg.] Pantoprazole [Protonix] 40 mg PO QAMAC 02/06/19 [History Confirmed 02/07/19 Last Taken 02/07/19 07:30 40 mg.] Benazepril [Lotensin] 10 mg PO DAILY #30 tab 02/08/19 [Rx Last Taken Unknown] Medical - DS: Hosp Hospital Course: A: *SUSU on likely CKD II: 2/2 poor Oral intake + BP meds + ?Bactrim *Hyponatremia: 2/2 volume depletion/meds *Hypotension: responded to IVF *HTN: hypotensive on admit *h/o TIA: on ASA/Statin *Anemia, chronic *GERD: *Obesity: *Generalized weakness: * Ms. Brooks is a 78 year old F Presents the ED for generalized weakness lightheadedness dyspnea on exertion. After daughter called Dr. Landrum or ENT specialist and instructed daughter to bring her into the ED. She states about the past 3 to 4 days she has been little lightheaded and dizzy when she gets up and has some shortness of breath with exertion. No cough or fevers. She is been on Bactrim for about 9 days prescribed by ENT. He has been hoarse for several months and has been seeing ENT and was most recently prescribed the Bactrim. Patient also gets up at night multiple times to urinate and was told to not drink anything after nighttime medications however per family sounds like she is decreased her oral intake during the day as well. And per family she she does not drink very much fluids anyway. And not eating a whole lot either. No nausea vomiting abdominal pain or diarrhea. In the ED she was found to have acute kidney injury with hyponatremia. Her troponin was negative. She was started on IV fluids and hospitalist was contacted. 02/07 Doing better. Renal function improving. No overnight events or new complaints. Blood pressure good. Chemistry improved. Continue IV fluids today and follow- up renal function. 02/08 Doing well. Sodium improved and renal improved. Patient doing well and stable for discharge. Instructed her to keep a log of blood pressure and bring to primary care provider. We stopped the hydrochlorothiazide and reduce the benazepril. Discharge diagnosis: Acute kidney injury on likely chronic kidney disease hyponatremia hypotensi Secondary discharge diagnosis: History of hypertension TIA chronic anemia GERD obesity - Time Spent with Patient Total time spent providing and/or coordinating discharge services: Greater than 30 minutes Medical - DS: Exam - Constitutional Vitals: Vital Signs Temp Pulse Pulse Resp BP BP Pulse Ox 02/07/19 07:08 97.9 F 20 126/62 97 02/07/19 03:34 98.5 F 69 16 121/69 93 02/06/19 22:52 97.9 F 73 16 128/59 96 02/06/19 19:34 98.2 F 68 18 110/46 96 02/06/19 16:07 97.8 F 63 18 107/57 94 02/06/19 16:05 20 109/84 94 02/06/19 16:00 88 20 02/06/19 13:18 97/58 02/06/19 13:15 89 97/56 02/06/19 12:31 66 89/57 93 02/06/19 12:28 108/57 02/06/19 12:20 122 H 18 126/84 94 02/06/19 11:53 97.3 F 69 14 91/60 96 Intake and Output 02/06/19 02/07/19 02/07/19 21:59 05:59 13:59 Intake Total 1000 1180 240 Output Total 750 400 Balance 1000 430 -160 Intake: IV 1000 1000 Sodium Chloride 0.9% 1,000 ml @ 1000 100 mls/hr IV .Q10H [facility] Rx#: [id number] Lactated Ringers 1,000 ml @ 1000 Wide Open IV BOLUS ONE Rx#: [id number] Oral 180 240 Output: Void Amount 750 400 Other: Meal Breakfast Percent of Meal Consumed 25% Feeding Ability Assist with Tray Set Up # Voids 1 Weight 91.852 kg Medical - DS: Data Labs on day of discharge: Labs from last 24 hours 02/07/19 02/06/19 02/06/19 04:42 12:14 12:14 WBC RBC Hgb Hct MCV MCH MCHC RDW Plt Count MPV Gran % Lymph % (Auto) [place] % (Auto) Eos % (Auto) Baso % (Auto) Gran # Lymph # (Auto) [place] # (Auto) Eos # (Auto) Baso # (Auto) Sodium 131 L 129 L Potassium 3.9 4.0 Chloride 98 94 L Carbon Dioxide 21 L 20 L Anion Gap 12.0 15.0 BUN 35 H 46 H Creatinine 1.5 H 2.6 H GFR Calculation 33 17 Glucose 110 H 110 H Uric Acid 9.7 H Calcium 8.8 9.0 Phosphorus 2.8 Magnesium 2.0 Total Bilirubin 0.4 0.4 Direct Bilirubin < 0.2 GGT 14 AST 22 26 ALT 15 17 Alkaline Phosphatase 78 87 Lactate Dehydrogenase 203 Troponin T < 0.01 Total Protein 5.9 6.6 Albumin 3.5 4.0 Globulin 2.4 2.6 Albumin/Globulin Ratio 1.5 1.5 Triglycerides 148 02/06/19 12:14 WBC 5.5 RBC 3.75 L Hgb 10.9 L Hct 32.2 L MCV 85.9 MCH 29.1 MCHC 33.8 RDW 13.8 Plt Count 136 L MPV 9.1 Gran % 69.0 Lymph % (Auto) 19.9 [place] % (Auto) 9.8 Eos % (Auto) 0.7 Baso % (Auto) 0.6 Gran # 3.9 Lymph # (Auto) 1.1 L [place] # (Auto) 0.5 Eos # (Auto) 0 Baso # (Auto) 0 Sodium Potassium Chloride Carbon Dioxide Anion Gap BUN Creatinine GFR Calculation Glucose Uric Acid Calcium Phosphorus Magnesium Total Bilirubin Direct Bilirubin GGT AST ALT Alkaline Phosphatase Lactate Dehydrogenase Troponin T Total Protein Albumin Globulin Albumin/Globulin Ratio Triglycerides Medical - DS: A/P - Patient/Caregiver Discharge Instructions Activity: increase activity as tolerated Diet: Cardiac Additional Instructions: Monitor your blood pressure daily and bring log to primary care provider Prescriptions: Benazepril [Lotensin] 10 mg PO DAILY #30 tab Transmission Status: Pending to [facility] #[id number] - Follow up Plan Follow up with: Nannette Vaca MD [Primary Care Provider] - Disposition: Home, Self-Care Prognosis: Fair Rehab Potential: Fair Overall status at discharge: patient is back to baseline
[2019-02-07] MEDS: ACETAMINOPHEN 325 MG TABLET PO PRN (17:27)
[2019-02-07] MEDS: ATORVASTATIN 40 MG TABLET PO SCH (21:09)
[2019-02-07] MEDS: OXYBUTYNIN CHLORIDE 5 MG TAB.XL.24H PO SCH (21:09)
[2019-02-08] MEDS: 0.9 % SODIUM CHLORIDE 10 ML SYRINGE IV SCH (05:07)
[2019-02-08] MEDS: PANTOPRAZOLE 40 MG TABLET PO SCH (06:31)
[2019-02-08 06:43] LABS: ALT/SGPT 17 U/l (0-40); AST/SGOT 22 U/l (0-37); Albumin 3.5 gm/dL (3.2-5.2); Albumin/Globulin Ratio 1.3 (1.0-2.3); Alkaline Phosphatase 78 U/L (39-117); Bilirubin,Direct < 0.2 mg/dL (0.0-0.3); Bilirubin,Total 0.5 mg/dL (0.0-1.0); Calcium 9.4 mg/dl (8.6-10.4); Carbon Dioxide 22 mmol/L (22-30); Chloride 98 mmol/L (96-108); Globulin 2.6 gm/dL (2.2-3.7); Glucose 99 mg/dL (70-105); Lactate Dehydrogenase 214 U/L (94-250); Phosphorous 2.6 mg/dL (2.7-4.5); Triglycerides 117 mg/dl (<150); Uric Acid 8.5 mg/dL (2.5-8.0)
[2019-02-08 06:48] LABS: Blood Urea Nitrogen 21 mg/dl (8-23); Glomerular Filtration Rate 60
[2019-02-08] MEDS: LACTOBACILLUS 1 CAPSULE PO SCH (08:03)
[2019-02-08] MEDS: DOCUSATE SODIUM 100 MG CAPSULE PO SCH (08:03)
[2019-02-08] MEDS: ENOXAPARIN 30 MG/0.3 ML SYRINGE SQ SCH (08:03)
[2019-02-08] MEDS: ASPIRIN 325 MG ENTERIC COATED TABLET PO SCH (08:04)
[2019-02-08] MEDS: RALOXIFENE HCL 60 MG TABLET PO SCH (08:04)
[2019-02-08] MEDS: ANORO ELLIPTA INH SCH (08:04)
== END 2019-02-08 10:57 | disposition home or self-care (01) | DRG 683 ==
LOC: ED 11:52 → MEDSUR 16:07
PROVIDERS: ADMIT Internal Medicine; ATTEND Internal Medicine